=== PATIENT | female | born 2000 | race Caucasian/White ===

== ENCOUNTER 2023-05-06 05:56 | Outpatient (CLI) | payer OTHER ==
[~2023-05-06] VITALS: Ht 154.9 cm; Wt 93.2 kg
[2023-05-06] MEDS ORDERED: NALT50TA PO (14:48)
[2023-05-06] MEDS ORDERED: SPIR50TA PO (14:48)
[2023-05-06] MEDS ORDERED: METH10TA3 PO (14:48)
[2023-05-06] MEDS ORDERED: ONDA4TAB11 SL (14:48)
[2023-05-06] MEDS ORDERED: METF-478 PO (14:48)
[2023-05-06] MEDS ORDERED: DESV50TA PO (14:48)
[2023-05-06] MEDS ORDERED: ESZO2TAB4 PO (14:48)
[2023-05-06] MEDS ORDERED: PANT40TA52 PO (14:48)
== END 2023-05-06 15:11 | disposition home or self-care (01) ==
LOC: PREOP 05:56
PROVIDERS: ATTEND Otolaryngology Otolaryngology/Facial Plastic Surgery
DX: Z01.818 Encounter for other preprocedural examination (principal)

== ENCOUNTER 2023-05-14 05:55 | Day surgery (SDC) | payer OTHER ==
[~2023-05-14] VITALS: Ht 154.9 cm; Wt 93.2 kg
[2023-05-14] VITALS (12 sets, daily range): BP systolic 121–143; BP diastolic 79–103
[~2023-05-14 05:55] MED LIST: DESV50TA PO; ESZO2TAB4 PO; METF-478 PO; METH10TA3 PO; NALT50TA PO; ONDA4TAB11 SL; PANT40TA52 PO; SPIR50TA PO
[2023-05-14] MEDS ORDERED: LACTATED RINGERS 1,000 ML 1,000 ML IV PRN (06:45)
[2023-05-14 06:52] LABS: BASOPHILS # (AUTO) 0.1 10^3/uL (0.0-0.1); BASOPHILS % (AUTO) 1 % (0-10); EOSINOPHILS # (AUTO) 0.3 10^3/uL (0.0-0.3); EOSINOPHILS % (AUTO) 2 % (0-10); HEMATOCRIT 42 % (35-52); HEMOGLOBIN 12.8 g/dL (11.5-16.0); LYMPHOCYTES # (AUTO) 3.1 10^3/uL (1.0-4.0); LYMPHOCYTES % (AUTO) 28 % (12-44); MEAN CORPUSCULAR HEMOGLOBIN 26 pg (25-34); MEAN CORPUSCULAR HGB CONC 30 g/dL (32-36); MEAN CORPUSCULAR VOLUME 85 fL (80-99); MONOCYTES # (AUTO) 0.8 10^3/uL (0.0-1.0); MONOCYTES % (AUTO) 7 % (0-12); NEUTROPHILS # (AUTO) 6.8 10^3/uL (1.8-7.8); NEUTROPHILS % (AUTO) 61 % (42-75); PLATELET COUNT 367 10^3/uL (130-400); WHITE BLOOD COUNT 11.1 10^3/uL (4.3-11.0)
[2023-05-14] MEDS ORDERED: MIDAZOLAM INJ 2 MG/2 ML VIAL ONE (06:53)
[2023-05-14] MEDS ORDERED: SEVOFLURANE (ULTANE) 15 ML INHAL SOLN ONE (06:53)
[2023-05-14] MEDS ORDERED: fentaNYL INJECTION 100 MCG/2 ML VIAL ONE ×2 (06:53→07:57)
[2023-05-14] MEDS ORDERED: ROCURONIUM 50 MG/5 ML VIAL IV ONE (06:53)
[2023-05-14] MEDS ORDERED: LIDOCAINE PF 2% 5 ML VIAL ONE (06:53)
[2023-05-14] MEDS ORDERED: ONDANSETRON INJECTION 4 MG/2 ML (SDV) ONE (06:53)
[2023-05-14] MEDS ORDERED: proPOfol INJECTION 200 MG/20 ML VIAL IV ONE (06:53)
--- NOTE | 2023-05-14 06:56 | Progress Note-Pre Operative ---
Pre-Operative Progress Note Date of Available H&P: May 14, 2023 Date H&P Reviewed: May 14, 2023 Time H&P Reviewed: 06:30 History & Physical: H&P Reviewed, Patient Examed, No changes noted Changes from last HP none Pre-Operative Diagnosis: Tonsillar hypertrophy with UAO, REc Tons LAVERN MONTGOMERY MD May 14, 2023 06:56
--- NOTE | 2023-05-14 06:56 | Progress Note-Post Operative ---
Post-Operative Progess Note Surgeon (s)/Locomotive Crane Operator Helper (s) Surgeon LAVERN MONTGOMERY MD Locomotive Crane Operator Helper n/a Pre-Operative Diagnosis Tonsillar hypertrophy with UAO, REc Tons Post-Operative Diagnosis same Post-Op Procedure Note Date of Procedure: May 14, 2023 Name of Procedure Performed: Tonsillectomy Description & Findings Description and Findings: n/a Anesthesia Type get Estimated Blood Loss minimal Packing none. Specimen(s) collected/removed tonsils LAVERN MONTGOMERY MD May 14, 2023 06:56
[2023-05-14] MEDS ORDERED: NS IV 1000 ML 1,000 ML IV SCH (07:00)
[2023-05-14] MEDS ORDERED: oxyCODONE 5 MG/5 ML ORAL SOLN 5 ML UDC PO PRN (07:00)
[2023-05-14] MEDS ORDERED: ACETAMINOPHEN 325 MG/10.15 ML ORAL SOLN UDC PO PRN (07:00)
[2023-05-14] MEDS ORDERED: METH10TA3 PO (07:09)
--- NOTE | 2023-05-14 08:23 | Anesthesia-General Post-Op ---
General Patient Condition Mental Status/LOC: Same as Preop Cardiovascular: Satisfactory Nausea/Vomiting: Absent Respiratory: Satisfactory Pain: Controlled Complications: Absent Post Op Complications Complications None Follow Up Care/Instructions Patient Instructions None needed. Anesthesia/Patient Condition Patient Condition Patient is doing well, no complaints, stable vital signs, no apparent adverse anesthesia problems. No complications reported per nursing. RICARDO HIDALGO CRNA May 14, 2023 08:23
[2023-05-14] MEDS ORDERED: PROMETHAZINE INJ 25 MG/ML VIAL ONE (08:27)
[2023-05-14] MEDS ORDERED: HYDROmorphone INJECTION 2 MG/ML VIAL IV ONE (08:30)
[2023-05-14] MEDS ORDERED: morphine INJ 10 MG/ML 1ML (SYR OR VIAL) IVP ONE (08:30)
[2023-05-14] MEDS ORDERED: PROMETHAZINE INJ 25 MG/ML VIAL IVP ONE (08:30)
[2023-05-14] MEDS ORDERED: ONDANSETRON INJECTION 4 MG/2 ML (SDV) IVP PRN (08:30)
[2023-05-14] MEDS ORDERED: MEPERIDINE INJ 50 MG/ML VIAL IVP ONE (08:30)
[2023-05-14] MEDS ORDERED: DEXAINTSOL PO (09:37)
[2023-05-14] MEDS ORDERED: OXYC5SOL19 PO (09:37)
[2023-05-14] MEDS ORDERED: TETRACAINESUCKERS MT (09:37)
[2023-05-14] MEDS ORDERED: AZIT200S47 PO (09:37)
== END 2023-05-14 11:18 ==
LOC: SDC 05:55
PROVIDERS: ATTEND Otolaryngology Otolaryngology/Facial Plastic Surgery
DX: J35.01 Chronic tonsillitis (principal); K21.9 Gastro-esophageal reflux disease without esophagitis; E66.9 Obesity, unspecified; J35.8 Other chronic diseases of tonsils and adenoids; Z79.899 Other long term (current) drug therapy; Z68.38 Body mass index [BMI] 38.0-38.9, adult
CPT/HCPCS: 36415; 84703; 85025; 87081